=== PATIENT | male | born 1990 | race Caucasian/White ===

== ENCOUNTER 2017-12-02 04:01 | Emergency (ER) | payer SELFPAY ==
[2017-12-02] MEDS: LORAZEPAM 2 MG INJ IV (05:12)
[2017-12-02] MEDS: SOD CHLORIDE 0.9% 1,000 ML IV (05:13)
[2017-12-02 05:56] LABS: ANION GAP 21 (8-16); BLOOD UREA NITROGEN 15 mg/dl (7-20); CALCIUM 9.9 mg/dl (8.4-10.2); CARBON DIOXIDE 24 mmol/L (21-31); CHLORIDE 104 mmol/L (97-110); CREATININE 1.01 mg/dl (0.61-1.24); GLUCOSE 113 mg/dl (70-220); POTASSIUM 3.6 mmol/L (3.5-5.1); SODIUM 145 mmol/L (135-144)
[2017-12-02] MEDS: LABETALOL HCL 20MG INJ IV (06:13)
== END 2017-12-02 07:14 | disposition home or self-care (01) ==
LOC: E/R 04:01
DX: R00.2 Palpitations (principal); T43.605A Adverse effect of unspecified psychostimulants, initial encounter; R00.0 Tachycardia, unspecified
CPT/HCPCS: 36415; 80048; 93005; 96374; 96375; 99291-25

== ENCOUNTER 2018-04-10 00:49 | Emergency (ER) | payer SELFPAY, OTHER ==
[2018-04-10] MEDS ORDERED: IBUPROFEN 600 MG TAB PO (03:00)
[2018-04-10] MEDS ORDERED: ACETAMINOPHEN 325 MG TAB PO (03:30)
== END 2018-04-10 03:12 | disposition home or self-care (01) ==
LOC: E/R 00:49
DX: F15.90 Other stimulant use, unspecified, uncomplicated (principal); F17.210 Nicotine dependence, cigarettes, uncomplicated
CPT/HCPCS: 93005; 99282

== ENCOUNTER 2018-06-26 15:01 | Emergency (ER) | payer SELFPAY | END 2018-06-26 16:37 | disposition home or self-care (01) | LOC: FTE 15:01 | DX: J02.9 Acute pharyngitis, unspecified (principal) | CPT/HCPCS: 99284 ==

== ENCOUNTER 2018-08-06 12:05 | Emergency (ER) | payer SELFPAY ==
[2018-08-06 13:09] LABS: ADD MAN DIFF? NO
[2018-08-06 13:15] LABS: WHITE BLOOD COUNT 6.2 10^3/ul (4.8-10.8)
[2018-08-06 13:15] LABS: BASOPHIL # 0.1 10^3/ul (0.0-0.1); BASOPHILS % 1.1 % (0.0-2.0); EOSINOPHILS # 0.1 10^3/ul (0.0-0.5); EOSINOPHILS % 0.8 % (0.0-7.0); HEMATOCRIT 45.6 % (42.0-52.0); HEMOGLOBIN 15.7 g/dl (14.0-18.0); LYMPHOCYTES # 1.5 10^3/ul (0.8-2.9); LYMPHOCYTES % 23.6 % (15.0-51.0); MEAN CORPUSCULAR HEMOGLOBIN 29.5 pg (29.0-33.0); MEAN CORPUSCULAR HGB CONC 34.4 g/dl (32.0-37.0); MEAN CORPUSCULAR VOLUME 85.6 fl (82.0-101.0); MEAN PLATELET VOLUME 10.4 fl (7.4-10.4); MONOCYTE # 0.4 10^3/ul (0.3-0.9); MONOCYTES % 6.2 % (0.0-11.0); NEUTROPHIL # 4.2 10^3/ul (1.6-7.5); NEUTROPHILS % 67.8 % (39.0-77.0); PLATELET COUNT 276 10^3/UL (140-415); RED BLOOD COUNT 5.33 10^6/ul (4.70-6.10); RED CELL DISTRIBUTION WIDTH 12.8 % (11.5-14.5)
[2018-08-06 13:37] LABS: ALANINE AMINOTRANSFERASE 66 IU/L (13-69); ALBUMIN 4.2 g/dl (3.3-4.9); ALKALINE PHOSPHATASE 77 IU/L (42-121); ANION GAP 16 (8-16); ASPARTATE AMINO TRANSFERASE 42 IU/L (15-46); BILIRUBIN,INDIRECT 2.1 mg/dl (0-1.1); BILIRUBIN,TOTAL 2.1 mg/dl (0.2-1.3); BLOOD UREA NITROGEN 12 mg/dl (7-20); CALCIUM 10.1 mg/dl (8.4-10.2); CARBON DIOXIDE 31 mmol/L (21-31); CHLORIDE 101 mmol/L (97-110); CREATININE 1.18 mg/dl (0.61-1.24); GLUCOSE 106 mg/dl (70-220); LIPASE 123 U/L (23-300); POTASSIUM 4.2 mmol/L (3.5-5.1); SODIUM 144 mmol/L (135-144)
== END 2018-08-06 14:00 | disposition home or self-care (01) ==
LOC: FTE 12:05
DX: R21 Rash and other nonspecific skin eruption (principal); F17.210 Nicotine dependence, cigarettes, uncomplicated
CPT/HCPCS: 80053; 83690; 85025; 99283